=== PATIENT | female | born 1980 | race Caucasian/White ===

== ENCOUNTER 2018-03-11 19:10 | Emergency (ER) | payer OTHER ==
[~2018-03-11] VITALS: Ht 167.6 cm; Wt 76.7 kg
[~2018-03-11 19:10] MED LIST: ACETAMINOPHEN-1 EAC1 PO; AFRIN15 ML NS; AUGMENTIN 875875 MG PO; BACTRIM DS TAB1 EACH PO; HYDROCODON-ACE1 EAC7 PO; HYDROCODONE-AP1 EAC6 PO; IBUPROFEN 800800 M1 PO; MACROBID 100 M100 M1 PO; MEDROLDOSEPACK PO; PYRIDIUM200 MG PO; ZOFRAN4 MG PO
[2018-03-11 19:35] VITALS: BP 152/86
[2018-03-11] MEDS ORDERED: HYDROCODONE-AP1 EAC6 PO (19:37)
[2018-03-11] MEDS ORDERED: PENICILLIN VK250 MG PO (19:37)
== END 2018-03-11 19:35 | disposition home or self-care (01) ==
LOC: M.ERS 19:10
DX: K02.9 Dental caries, unspecified (principal)

== ENCOUNTER 2021-01-13 00:42 | Emergency (ER) | payer BC ==
[~2021-01-13] VITALS: Ht 167.6 cm; Wt 80.7 kg
[~2021-01-13 00:42] MED LIST changes: +PENICILLIN VK250 MG PO
[2021-01-13] MEDS ORDERED: [UNRECOGNIZED DRUG - REMARK] (00:51)
[2021-01-13] MEDS ORDERED: AMOXICILLIN (00:51)
[2021-01-13 00:52] VITALS: BP 130/91
[2021-01-13] MEDS ORDERED: ACETAMINOPHEN-1 EAC2 PO (01:04)
[2021-01-13] MEDS ORDERED: IBUPROFEN 800800 MG PO (01:04)
== END 2021-01-13 01:15 | disposition home or self-care (01) ==
LOC: M.ERS 00:42
DX: K08.89 Other specified disorders of teeth and supporting structures (principal)